=== PATIENT | female | born 1965 ===

== ENCOUNTER 2020-04-09 06:49 | Day surgery (SDC) | payer OTHER ==
[~2020-04-09 06:49] MED LIST: PAXIL20 MG PO; SYNTHROID50 MCG PO; ZONEGRAN100 MG PO
== END 2020-04-09 12:15 | disposition home or self-care (01) ==
LOC: CIR.AMB 06:49
PROVIDERS: ATTEND Orthopaedic Surgery Hand Surgery
DX: S62.610A Displaced fracture of proximal phalanx of right index finger, initial encounter for closed fracture (principal); Z20.822 Contact with and (suspected) exposure to COVID-19